=== PATIENT | female | born 1990 | race Caucasian/White ===

== ENCOUNTER 2017-06-26 23:08 | Emergency (ER) | payer SELFPAY ==
[~2017-06-26] VITALS: Ht 167.6 cm; Wt 77.3 kg
[~2017-06-26 23:08] MED LIST: DOCU-41 PO; FERR-74 PO; HYDR-4003 PO; IBUP800T28 PO; PREN1TAB87 PO; VENL75CA PO
[2017-06-26 23:18] VITALS: BP 144/93; RESP 20; O2SAT 99
--- NOTE | 2017-06-26 23:22 | ED.REPORT ---
HPI-General Illness Date of Service Jun 26, 2017 ED Provider: Dr. Painting Pt is a 26 year old female with a hx of anxiety and PCOS presenting to the ED complaining of tongue tingling onset at 2240. Associated symptoms include left eye tingling, being unable to produce saliva and feeling like there is "syrup coating her throat". She states that she was using "Draino Super Strength" mixed with water and accidentally inhaled some of the fumes. The pt is currently . She called poison control and was told to drink water and come to the ED. Denies fever, chills, nausea, vomiting, or SOB. Nursing Notes Stated Complaint: INHALED TOXIC FUMES Chief Complaint: ENT & Mouth Nursing Notes Reviewed: Yes Allergies: Coded Allergies: Sulfa (Sulfonamide Antibiotics) (Verified Allergy, Severe, Rash, 06/28/15) bupropion (Verified Allergy, Unknown, 06/28/15) labetalol (Verified Allergy, Unknown, Rash,Itching,, 06/26/17) lamotrigine (Verified Allergy, Unknown, 06/28/15) lithium (Verified Allergy, Unknown, 06/28/15) paliperidone (Verified Allergy, Unknown, 06/28/15) paroxetine (Verified Allergy, Unknown, 06/28/15) quetiapine (Verified Allergy, Unknown, 06/28/15) Scheduled Docusate Sodium (Colace) 100 Mg Capsule 100 MG PO BID Ferrous Sulfate (Feosol) 325 Mg Tablet 325 MG PO QAM Vit W-Ca,Fe,FA(<1 mg) ( Vitamins) 1 Each Tablet 1 EACH PO DAILY Venlafaxine ER (Effexor XR) 75 Mg Capsule 75 MG PO DAILYWM Scheduled PRN Hydrocodone-Acetaminophen 5-325 mg (Hydrocodone-Acetaminophen 5-325 mg) 1 Each Tablet 1-2 TABLET PO Q4H PRN PRN For Pain Ibuprofen (Ibuprofen) 800 Mg Tablet 800 MG PO Q6H PRN PRN For Pain General Time Seen by MD: 23:22 Chief Complaint Allergic reaction Hx Obtained From: Patient Arrived By: Walk-in Sudden in Onset?: Yes Onset Occurred: 1 - 4 hours ago Symptom Duration: Since onset Severity: Current: No pain currently Severity: Maximum: No pain Recent Healthcare: No recent doctor visit, No recent hospitalization Similar Sx Previous: No Past Medical History Past Medical History Ovarian cysts Anxiety disorder Past Surgical History denies Smoking History Never Smoker Ambulatory Status Independent Review of Systems Reports: Tingling in tonue and left eye. Dry mouth. Full Review of Systems Constitutional: Denies: Chills, Fever Respiratory: Denies: Shortness of breath GI: Denies: Nausea, Vomiting Complete sys rev & neg: except as marked. Physical Exam Vital Signs Vital Signs Date Time Temp Pulse Resp B/P Pulse Ox O2 Delivery O2 Flow Rate FiO2 06/27/17 00:35 86 16 120/83 97 Room Air 06/26/17 23:18 36.4 102 20 144/93 99 Room Air Initial VS: Reviewed General/Constitutional: Well-developed, Well-nourished Head / Eyes: Atraumatic, Normocephalic, PERRL Abdomen / GI: Soft, Non-tender, No guarding, No rebound, No distention Extremities: Vascular intact, Neuro intact, No swelling, No tenderness Skin: Warm, Dry, No cyanosis Neurologic: Alert, Oriented, Nonfocal Psychiatric: Mood/affect normal, Behavior normal, Normal thought content Head / Eyes: Atraumatic, Normocephalic, PERRL, EOMI, Conjunctiva NL ENT: Atraumatic, Airway patent, Mucous membranes moist, Pharynx NL Voice normal Respiratory / Chest: Atraumatic, Breath sounds NL, Breath sounds = bilat, No respiratory distress, No rales Cardiovascular: Heart rate NL, Regular rhythm, Heart sounds NL, No gallop, No murmurs, No rubs Re-Eval/Medical Decision Time of Eval: 00:27 Patient Status: Condition improved Re-Evaluation/Progress Note: Pt feeling better. Lungs clear. Discussed plan for discahrge. Pt understands and agrees with plan. Consultation : Call Returned at: 23:18 Note: Consultation with poison control. Watch for respiratory symptoms. Counseled Regarding: Diagnosis, Lab results, Need for follow-up, When/why to return to ED Discharge & Departure Primary Impression: Inhalation of cleaning agent Encounter type: initial encounter Injury intent: accidental or unintentional Qualified Code: T59.891A - Toxic effect of other specified gases , fumes and vapors, accidental (unintentional), initial encounter Disposition: Home Discharge Condition All VS Reviewed: Yes Condition: Improved Additional Instructions: Emergency Department evaluation included interview, examination, discussion with poison control and observation in the emergency department. There does not appear to be any serious injury from the inhalation of fumes. Continue to sip water as needed; avoid further exposure to these fumes. Return emergency Department for shortness of breath or swelling in throat. Referrals: Bayron Goldman MD (PCP) Scribe Attestation Portions of this note were transcribed by Kianna Card. I, Dr. Painting personally performed the history, physical exam and medical decision-making; I reviewed and confirmed the accuracy of the information in the transcribed note. Signed by : Hodan Rahman, 06/26/2017. copies to: Bayron Goldman MD, Donald L MD Jun 26, 2017 23:22 KIANNA CARD Jun 26, 2017 23:28
[2017-06-27 00:35] VITALS: BP 120/83; PULSE 86; RESP 16; O2SAT 97
== END 2017-06-27 00:36 | disposition home or self-care (01) ==
LOC: SED 23:18
DX: T59.891A Toxic effect of other specified gases, fumes and vapors, accidental (unintentional), initial encounter (principal); X58.XXXA Exposure to other specified factors, initial encounter; Y93.89 Activity, other specified; Y92.9 Unspecified place or not applicable; Y99.8 Other external cause status